=== PATIENT | female | born 1950 | race Caucasian/White ===

== ENCOUNTER 2022-07-23 15:06 | Outpatient (REF) | payer SELFPAY | END 2022-07-23 15:07 | disposition home or self-care (01) | LOC: HO.HAP 15:06 | PROVIDERS: Visit Provider Nurse Practitioner Adult Health | DX: Z13.89 Encounter for screening for other disorder (principal) ==

== ENCOUNTER 2022-07-24 13:58 | Outpatient (REF) | payer SELFPAY | END 2022-07-24 13:59 | disposition home or self-care (01) | LOC: HO.HAP 13:58 | PROVIDERS: Visit Provider Nurse Practitioner Adult Health | DX: Z13.89 Encounter for screening for other disorder (principal) ==

== ENCOUNTER 2022-08-04 14:20 | Outpatient (REF) | payer SELFPAY ==
--- NOTE | 2022-08-04 16:19 | MHC.AU.HFU ---
Hearing Instrument Follow-Up- Binaural Date of Visit: 08/04/22 Right Ear: Phonak Justinaeo P70-R, #[id number], [employer] Rep[employer] Warranty: 03/30/2025 Loss and Damage Warranty: 03/30/2025 Service Plan: 03/30/2025 Battery Size: Rechargeable Business Operations Manager: 0M Type of Dome: Small Power Dome Type of Wax Guard: CeruShield Dispensed By: [facility] Date of Fittin01/08/2022 Left Ear: Phonak Justinaeo P7-R, #[id number], [employer] Warranty: 03/30/2025 Loss and Damage Warranty: 03/30/2025 Service Plan: 03/30/2025 Battery Size: Rechargeable Business Operations Manager: 0M Type of Dome: Small Power Dome Type of Wax Guard: CeruShield Dispensed By: [facility] Date of Fittin01/08/2022 Follow-Up Summary: The patient is here for a hearing aid check as she is not hearing very well with her hearing aids. She finds that sounds are not as crisp as they used to be. 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 Recently she has had to go to court and is having trouble hearing in the courtroom. She was here on 07/23 for the same issue. Visual inspection of the hearing aids was unremarkable. Otoscopy reveals non-occluding cerumen in both ears. I changed the domes and wax guards bilaterally and brushed the microphone ports. Listening check reveals clear sound bilaterally. The patient has an audiogram from 12/24/21. Phonak Target shows the hearing aids are programmed to the most recent audiogram and are set to 100% target gain. I suspect that the hearing aids are pushing right up against the cerumen when inserted in the patient's ears, affecting sound quality. I recommend cerumen removal prior to making any adjustments to hearing aid programming. The patient has an appointment with her PCP this week and will try to get the cerumen removed at that visit, if not she will try an Urgent care facility. I instructed her to use the volume control as needed. We practiced together. She will return as needed. She agreed with this plan. Signature: Provider: Justina Lorenz, [facility]
== END 2022-08-04 14:21 | disposition home or self-care (01) ==
LOC: HO.HAP 14:20
PROVIDERS: Visit Provider Nurse Practitioner Adult Health
DX: Z13.89 Encounter for screening for other disorder (principal)

== ENCOUNTER 2024-01-27 13:53 | Outpatient (REF) | payer SELFPAY ==
--- NOTE | 2024-01-27 14:32 | MHC.AU.HA3 ---
Hearing Instrument Follow-Up- Binaural Date of Visit: 01/27/24 Right Ear: Landon, , Color, Serial Number: Santiago Jones P70-R, #[id number], Anna Crcoker Building Economist Repair Warranty: 03/30/2025 Building Economist Loss and Damage Warranty: 03/30/2025 [facility] Service Plan: [facility] expires one year from date of fitting per contract. Battery Size: Rechargeable Manager Field Investigations/Slim Tube: 0M [place]/Dome/CShell/SlimTip:Small Power Type of Wax Guard: CeruShield Dispensed By: [facility] Date of Fittin01/08/2022 Left Ear: Landon, , Color, Serial Number: Santiago Jones P7-R, #[id number], Anna Crocker Building Economist Repair Warranty: 03/30/2025 Building Economist Loss and Damage Warranty: 03/30/2025 [facility] Service Plan: [facility] expires one year from date of fitting per contract. Battery Size: Rechargeable Manager Field Investigations/Slim Tube: 0M Earmold/Dome/CShell/SlimTip: Small Power Dome Type of Wax Guard: CeruShield Dispensed By: [facility] Date of Fittin01/08/2022 Follow-Up Summary: Pt. walked in with right hearing aid not working. Reports she had her ears cleaned at PCP but the right aid is still not doing anything. Found wax on both receivers, right wax guard visibly blocked. Cleaned aids; vacuumed neo ports; replaced domes, wax guards, tails. Listening check positive. Improvement reported. Recommendations: Recommendations: Hearing instrument follow-up or maintenance as needed. Diagnosis Code(s): Primary Diagnosis: H90.3 Bilateral Sensorineural Hearing Loss Signature: Provider: Samuel Mccurdy, [facility]
== END 2024-01-27 13:54 | disposition home or self-care (01) ==
LOC: HO.HAP 13:53
DX: Z46.1 Encounter for fitting and adjustment of hearing aid (principal); H90.3 Sensorineural hearing loss, bilateral
CPT/HCPCS: 92593